=== PATIENT | female | born 1995 | race Caucasian/White ===

== ENCOUNTER → 2017-10-19 | Day surgery (SDC) | payer OTHER ==
[~2017-10-19] VITALS: Ht 172.7 cm; Wt 102.1 kg
[~2017-10-19] MED LIST: DILAUDID2 MG PO; FIORICET 325 MG1 TAB PO; FLOMAX(MONOGRA0.4 MG PO; MACROBID100 MG PO; MOTRIN 600 MG600 MG PO; REGLAN10 MG PO
--- NOTE | 2017-10-19 11:54 | Operative Report ---
Operative/Inv Procedure Report Surgery Date: 10/19/17 Name of Procedure: Umbilical hernia repair Pre-Operative Diagnosis: Incarcerated umbilical hernia Post-Operative Diagnosis: Same Estimated Blood Loss: scant Surgeon/[employer] Lieutenant: Adal Carlisle MD Anesthesia: laryngeal mask airway Specimens: Hernia sac nodule Operative Indication: Patient is a healthy 22-year-old woman who presents with umbilical pain. She is found to have a diminutive umbilical hernia by CT scan. Palpable area is a hard nodule. She presents for repair due to exquisite tenderness at the site Operative/Procedure Note Note: After informed consent patient brought to the operating room and laid supine. Gen. anesthesia obtained and the abdomen was prepped and draped. The periumbilical tissues were infiltrated with a cocktail local anesthesia. A curvilinear incision was made sharply. We dissected down to the umbilical stalk and circumferentially dissected it bluntly. The stock was then transected with cautery, thus exposing the defect. The hernia sac was circumferentially dissected down to level of fascia and incised the neck with cautery. Contents were then excised and passed off the field. The fascial defect was tiny, measuring 3 mm in size. Primary repair was undertaken using 2 interrupted 0 Maxon sutures. Wound was irrigated with saline. The umbilical stalk re-created with 3-0 Vicryl. Incision was then closed in layers of Vicryl. Sterile dressings were applied. Sponge and needle counts are correct
== END ==
LOC: STS 00:45
DX: K42.0 Umbilical hernia with obstruction, without gangrene (principal); K21.9 Gastro-esophageal reflux disease without esophagitis
CPT/HCPCS: 81025; 88302; J0131; J0690; J2250; J2405